=== PATIENT | female | born 1940 | race Caucasian/White ===

== ENCOUNTER 2025-02-19 04:51 | Observation (INO) | payer MEDICARE, SELFPAY ==
[2025-02-19] VITALS (10 sets, daily range): BP systolic 97–159; BP diastolic 58–76; PULSE 66–96; RESP 15–20; TEMP 36.2–38; O2SAT 88–97; BMI 26.0; BMI 24.3
--- NOTE | ~2025-02-19 | XR_ITS ---
CLINICAL HISTORY: AMS, fever 1 view chest x-ray Comparison: None provided Findings: Bilateral basilar predominant linear reticular opacities reflect chronic lung fibrotic changes. No consolidation or effusion. Heart is mildly enlarged. No acute fracture. IMPRESSION: No acute cardiopulmonary findings. This document has been electronically signed by: Cruz Magdaleno MD on 02/19/2025 06:17:43
--- NOTE | 2025-02-19 05:09 | ECG_ITS ---
Test Reason : AMS Blood Pressure : */* mmHG Vent. Rate : 69 BPM Atrial Rate : 69 BPM P-R Int : 160 ms QRS Dur : 132 ms QT Int : 462 ms P-R-T Axes : 40 59 24 degrees QTcB Int : 495 ms Normal sinus rhythm Possible Left atrial enlargement Right bundle branch block Abnormal ECG No previous ECGs available Referred By: Michela Sharif Electronically Signed By: AC BERGMAN MD
[2025-02-19 05:41] LABS: MANUAL DIFF FLAG NO
[2025-02-19 05:42] LABS: Hematocrit 41.7 % (37.0-47.0); Hemoglobin 13.7 g/dl (12.0-16.0); Imm Gran Abs Auto 0.05 X10*3/uL (0.00-0.03); Imm Gran Pct Auto 0.4 % (0.0-0.4); Lymphocytes Absolute Auto 0.6 X10*3/uL (1.2-4.9); Mean Corpuscular HGB Conc 32.9 g/dl (31.0-35.0); Mean Corpuscular Hemoglobin 27.5 pg (27.0-33.0); Mean Corpuscular Volume 83.7 fL (80.0-98.0); NRBC Abs Auto 0.000 X10*3/uL (0.0-0.012); NRBC Pct Auto 0.0 /100WBC (0.0-0.2); Platelet Count 178 X10*3/uL (160-400); Red Blood Count 4.98 X10*6/uL (4.20-5.50); White Blood Count 11.3 X10*3/uL (4.8-10.8)
[2025-02-19 05:47] LABS: INTERNATIONAL NORM RATIO 1.2 (0.9-1.1); Prothrombin Time 14.7 SEC (11.2-13.5)
[2025-02-19 06:04] LABS: Alanine Aminotransferase 14 U/L (0-31); Albumin Level 4.4 g/dL (3.5-5.0); Alkaline Phosphatase 116 U/L (39-117); Anion Gap 14 (12-20); Aspartate Amino Transferase 25 U/L (5-31); Blood Urea Nitrogen 16 mg/dL (9-16); Calcium 9.6 mg/dL (8.4-10.2); Carbon Dioxide 23 mmol/L (22-29); Chloride 105 mmol/L (96-108); Creatinine Clr Calc Pharmacy 35.1; Estimated Glomerular Filt Rate 53; Magnesium 2.1 mg/dL (1.6-2.6); Potassium 4.0 mmol/L (3.3-5.1); Sodium 138 mmol/L (135-145); Total Protein 7.3 g/dL (6.5-8.0)
[2025-02-19 06:07] LABS: Resp Syncy Virus RNA Qual PCR NEGATIVE (Negative); SARS COV2 PCR INHOUSE NEGATIVE (Negative)
[2025-02-19 06:12] LABS: Troponin-I High Sensitivity 11.5 ng/L (<3.5-17.0)
--- NOTE | 2025-02-19 06:14 | PC.NURSE ---
pt daughter called, will arrive as soon as possible, had a flat tire.
--- NOTE | 2025-02-19 06:15 | PC.NURSE ---
pt placed on 2L 02, sp02 92%, 89% on room air.
--- OUTSIDE RECORDS SUMMARY | 2025-02-19 06:32 | XMS_ITS | Patient Health Record ---
Author Organization [facility] Address [address] [place] [id number] Care Team Providers Care Gang Sawyer Name Role Phone NONE, NONE Primary Care Provider Epifanio Soto [phone] Reason For Referral No Information Plan Of Treatment No Information
--- NOTE | 2025-02-19 07:26 | ED_ITS ---
HPI - Altered Mental Status General Chief Complaint: Altered Mental Status Stated Complaint: STROKE ALERT. AMA Time Seen by Provider: 02/19/25 04:58 Source: patient, EMS, RN notes reviewed and old records reviewed Mode of arrival: EMS Limitations: altered mental status History of Present Illness ED Provider: Dr. Michela Sharif HPI narrative: 84-year-old female brought in by EMS from home for altered mental status (AMS). Daughter last spoke with patient at 1999 yesterday when patient said she was ?tired but fine.? Patient never got up to go to bed and remained in her chair overnight. Since ~1999 last night family notes headache, generalized weakness, and vision changes with progressive confusion; unable to stand yesterday. EMS blood glucose 146. Reported possible fever per family, but none documented or recalled by patient. Outside TNK window (last known well 1999 yesterday). History notable for recent hospitalization and rehab stay in October for back pain; details of hospitalization and rehab unclear. Lives at home; daughter is primary caregiver but does not reside with patient. Normally ambulatory and walks daily with daughter. Related Data Allergies Allergy/AdvReac Type Severity Reaction Status Date / Time citalopram (From Celexa) Allergy Unknown Unknown Verified 02/19/25 05:10 amoxicillin AdvReac Unknown Diarrhea Verified 02/19/25 05:14 Review of Systems 2 Review of Systems: as per HPI, full review of systems performed and negative but for the above mentioned pertinent positives and negatives. [facility] Social History Social History Smoked in Last 30 Days: No Advance Directives: No Advance Directives Information Provided: No Physical Exam ED Exam Exam: GENERAL: Chronically ill-appearing, conversant, appears globally weak. SKIN: Normal skin color for ethnicity, warm, dry, no rashes noted. HEENT: Normocephalic, atraumatic, no stridor, posterior oropharynx nonerythematous, EOMI. NECK: Soft, supple, full ROM, midline structures nontender, no step-offs, no deformities, no lymphadenopathy. CHEST: Heart regular rate and rhythm, no murmurs, symmetric chest rise and fall. PULMONARY: Clear to auscultation bilaterally, no labored breathing, no wheezes/rhales/ rhonchi. ABDOMINAL: Soft, nondistended, nontender, positive bowel sounds in all quadrants. : Deferred. MUSCULOSKELETAL: Normal tone, full range of motion, no deformities, no peripheral edema. NEURO: Alert and oriented to person, CN II through XII intact, no focal neurologic deficits. PSYCHIATRIC: Flat affect, fluid speech, appropriate demeanor. Vital Signs: Vital Signs - 24 hr 02/19/25 05:07 02/19/25 06:11 02/19/25 06:37 Temperature 100.4 F 98.3 F 99.6 F Pulse Rate 73 76 Respiratory Rate 18 16 Blood Pressure 117/65 121/65 Pulse Oximetry 92 94 Oxygen Delivery Method Room Air Nasal Cannula Oxygen Flow Rate 3 BMI result Body Mass Index 26.0 Medical Decision Making Medical Decision Making MDM Narrative: 84-year-old female with acute AMS, headache, weakness since last night (outside TNK window). Differential diagnosis includes anemia, electrolyte abnormality, infection, rhabdomyolysis/myositis, neurologic disorders such as Guillain-P[place] or myasthenia gravis, CVA, medication side effects, deconditioning, dehydration, among many others. A broad-based workup was initiated based on the patient's history and physical examination. They were watched closely on nitrocellulose operator with vital signs that were monitored during the duration of their stay. There are no signs of focal neurological deficit or weakness on exam. Problem #1: Altered Mental Status Without Focal Neurologic Symptoms Assessment: Acute confusion with headache, weakness, and visual complaints since ~16 hours ago. Out of window for thrombolytics. Exam shows equal leg weakness and normal language therapist; oriented to person, month, year, place. Plan: * Clinical picture favors metabolic process. No indication for emergent neuroimaging at this time. Patient has no focal neurologic deficits and is mentating appropriately, though appears globally weak. * Comprehensive AMS laboratory panel per ED protocol (CBC, CMP, UA, TSH, troponin, EKG review, toxicology as indicated). * Continue cardiac monitoring; note RBBB (baseline unknown). * Maintain normoglycemia; repeat POC glucose if indicated. * Monitor vitals and neurological status in ED; re-evaluate after imaging and labs return. * Update daughter with results and discuss next steps. Problem #2: Generalized Weakness Assessment: Progressive weakness over one week, acutely worse since last night; unable to stand yesterday. Etiology under investigation (neurologic vs infectious vs metabolic). Plan: * Included in AMS workup above. * Physical therapy consult if admission and once medically stable. * Continue fall precautions. Will reassess pending imaging and laboratory data and determine need for admission versus discharge when workup complete. 7:32 AM 02/19/2025 (Dr. Michela Sharif, Terrance.Jocelyn.) workup shows evidence of influenza. She also has a slightly elevated white blood cell count which could mean a bacterial infectious process on top of the influenza. Awaiting urinalysis though I feel she is at the point where she can be admitted. Covered with a dose of Rocephin. Given a L of IV fluid and a dose of Tamiflu. She remains hemodynamically stable though globally weak. Admitted in guarded condition. Differential Diagnosis Differential Diagnoses: The differential diagnosis associated with the presentation includes (as above) Admission/Observation Consideration of admission/observation: Escalation of care including admission/observation considered Consult Healthcare Provider Management of the patient was discussed with: Hospitalist Lab Data MDM Lab Attestation statement: I reviewed the patient's lab results. 02/19/25 05:24 02/19/25 05:24 Labs: Lab Results 02/19/25 02/19/25 Range/Units 05:24 05:25 WBC 11.3 H (4.8-10.8) X10*3/uL RBC 4.98 (4.20-5.50) X10*6/uL Hgb 13.7 (12.0-16.0) g/dl Hct 41.7 (37.0-47.0) % MCV 83.7 (80.0-98.0) fL MCH 27.5 (27.0-33.0) pg MCHC 32.9 (31.0-35.0) g/dl RDW 16.0 (11.0-16.0) % Plt Count 178 (160-400) X10*3/uL MPV 9.8 (9.4-12.3) fL Immature Gran % (Auto) 0.4 (0.0-0.4) % Neut % (Auto) 89.2 H (45-73) % Lymph % (Auto) 5.0 L (20-40) % Sterling % (Auto) 4.6 (2-11) % Eos % (Auto) 0.4 (0-4) % Baso % (Auto) 0.4 (0-2) % Lymph # (Auto) 0.6 L (1.2-4.9) X10*3/uL Sterling # (Auto) 0.5 (0.1-1.2) X10*3/uL Eos # (Auto) 0.0 (0.0-0.4) X10*3/uL Baso # (Auto) 0.0 (0.0-0.2) X10*3/uL Abs Immat Gran (auto) 0.05 H (0.00-0.03) X10*3/uL Absolute Neuts (auto) 10.1 H (2.0-8.3) x10*3/uL Absolute Nucleated RBC 0.000 (0.0-0.012) X10*3/uL Nucleated RBC % (auto) 0.0 (0.0-0.2) /100WBC PT 14.7 H (11.2-13.5) SEC INR 1.2 H (0.9-1.1) Sodium 138 (135-145) mmol/L Potassium 4.0 (3.3-5.1) mmol/L Chloride 105 (96-108) mmol/L Carbon Dioxide 23 (22-29) mmol/L Anion Gap 14 (12-20) BUN 16 (9-16) mg/dL Creatinine 0.99 (0.5-1.4) mg/dL Estim Creat Clear Calc 35.1 Estimated GFR 53 Random Glucose 99 (60-115) mg/dL Lactic Acid 0.8 (0.5-2.0) mmol/L Calcium 9.6 (8.4-10.2) mg/dL Magnesium 2.1 (1.6-2.6) mg/dL Total Bilirubin 1.0 (0.0-1.0) mg/dL AST 25 (5-31) U/L ALT 14 (0-31) U/L Alkaline Phosphatase 116 (39-117) U/L Troponin I High Sens 11.5 (<3.5-17.0) ng/L Total Protein 7.3 (6.5-8.0) g/dL Albumin 4.4 (3.5-5.0) g/dL Influenza Type A (PCR) POSITIVE A (Negative) Influenza Type B (PCR) NEGATIVE (Negative) RSV RNA Qual (PCR) NEGATIVE (Negative) SARS-CoV-2 RNA (RT-PCR) NEGATIVE (Negative) Independent Interpretation I performed an independent interpretation of an: EKG Interpretation: My independent interpretation of the ECG reveals normal sinus rhythm with rate of 69, normal axis, right bundle branch block, no ST elevations or depressions to suggest ischemic changes, no previous for comparison My independent interpretation of the chest x-ray reveals no consolidations, pulmonary edema, pleural effusion, pneumothorax, obvious bony abnormalities. Radiology Impression Discussion of test interpretation with radiology: I have reviewed the radiologist's reading. Independent Historian Clinical information obtained from an independent historian. History obtained from or confirmed by: EMS External Record Review External record reviewed: Inpatient record Prescription Management I considered prescription management with: Antiviral Chronic Conditions Patient?s care impacted by: Hypertension Social Determinants Patient?s care significantly limited by Social Determinants of Health including: Other Social Determinant of Health Discharge Plan Discharge Clinical Impression: Influenza A, Acute encephalopathy, Generalized muscle weakness Patient Disposition: Admitted As Inpatient Print Language: Tamazight
--- NOTE | 2025-02-19 08:19 | P.HPHOSP_ITS ---
History of Present Illness Date of Service: 02/19/25 Attending physician on admission: Asa Nichole Chief Complaint: weakness This is an 84 year old female who presents to the ED due to altered mental status. The patient last spoke to her daughter yesterday evening and reported that she was feeling tired. Then patient never got into her bed and remained in the chair overnight. She has had generalized weakness and confusion and inability to ambulate. In the emergency department lab work was relatively unremarkable. She was noted to be hypoxic with o2 saturation dropping to 89% on room air. She tested positive for influenza A. Chest x-ray was unremarkable. patient was treated with IVF and tamiflu and empiric antibiotics. The patient is currently awake and alert. She denies any shortness of breath at this time, she does endorse a dry cough. She denies any fever, chills. She does report feeling very weak. She had decreased appetite yesterday and did not eat anything. Review of Systems 2 Review of Systems: Yes all other systems are reviewed and are negative Constitutional: Constitutional: Denies chills and Denies fever(s) Cardiovascular: Cardiovascular: Denies chest pain, Denies palpitations and Denies dyspnea Respiratory: Respiratory: Reports cough and Denies dyspnea Gastrointestinal: Gastrointestinal: Denies abdominal pain, Denies diarrhea, Denies nausea and Denies vomiting Endocrine: Endocrine: Denies palpitations [facility] Social History Household Members: Family Housing: House Do you presently have visiting nurse or other home services: Yes Patient Tobacco Use Status: Never used Tobacco Smoked in Last 30 Days: No Currently Displaying Signs/Symptoms of Drug Intoxication Withdrawal: No Do you feel safe in your current relationship?: No Current Relationship Advance Directives: No Advance Directives Information Provided: No Recently lost weight without trying: Yes How much weight loss: 2-13 pounds Nutrition Risks: No Nutritional Risk Patient : No : No Poor oral hygiene: No Meds Allergies Allergy/AdvReac Type Severity Reaction Status Date / Time citalopram (From Celexa) Allergy Unknown Unknown Verified 02/19/25 05:10 amoxicillin AdvReac Unknown Diarrhea Verified 02/19/25 05:14 Active Medications: Current Medications Lactated Ringer's (Lr) 1,000 mls @ 999 mls/hr IV .Q1H1M ONE Stop: 12/14/25 08:23 Home Medications ?Medication ?Instructions ?Recorded ?Confirmed ?Last Taken ?Type atorvastatin 20 mg tablet 20 mg PO BEDTIME 02/19/25 Unknown History sertraline 100 mg tablet 200 mg PO BEDTIME 02/19/25 1 04/22/24 Unknown History Physical Exam 2 Vital Signs and Narrative: Vital Signs: Last Vital Signs Temp 99.6 F 02/19/25 06:37 Pulse 76 02/19/25 06:11 Resp 16 02/19/25 06:11 BP 121/65 02/19/25 06:11 Pulse Ox 94 02/19/25 06:11 O2 Del Method Nasal Cannula 02/19/25 06:11 O2 Flow Rate 3 02/19/25 06:11 BMI result Body Mass Index 26.0 Const: General: cooperative, comfortable, alert and awake Nutritional Appearance: average body habitus Orientation/consciousness: patient oriented x3 Resp: Effort & Inspection: normal respiratory effort, able to speak in complete sentences, no respiratory distress and no use of accessory muscles A uscultation: no wheezes Cardio: Rate: regular rate GI: Inspection: No distended Palpation (GI): Soft to palpation and nontender Neuro: Other: grossly nonfocal; able to move all 4 extremities spontaneously; speech clear, face symmetrical General: patient oriented x3 Extrem: General: No pedal edema Results Labs 02/19/25 05:24 02/19/25 05:24 Labs: Laboratory Results - last 24 hr 02/19/25 02/19/25 05:24 05:25 MCV 83.7 MCH 27.5 MCHC 32.9 RDW 16.0 Plt Count 178 MPV 9.8 Immature Gran % (Auto) 0.4 Neut % (Auto) 89.2 H Lymph % (Auto) 5.0 L Hinds % (Auto) 4.6 Eos % (Auto) 0.4 Baso % (Auto) 0.4 Lymph # (Auto) 0.6 L Hinds # (Auto) 0.5 Eos # (Auto) 0.0 Baso # (Auto) 0.0 Abs Immat Gran (auto) 0.05 H Absolute Neuts (auto) 10.1 H Absolute Nucleated RBC 0.000 Nucleated RBC % (auto) 0.0 PT 14.7 H INR 1.2 H Anion Gap 14 Estim Creat Clear Calc 35.1 Estimated GFR 53 Random Glucose 99 Lactic Acid 0.8 Calcium 9.6 Magnesium 2.1 Total Bilirubin 1.0 AST 25 ALT 14 Alkaline Phosphatase 116 Troponin I High Sens 11.5 Total Protein 7.3 Albumin 4.4 Influenza Type A (PCR) POSITIVE A Influenza Type B (PCR) NEGATIVE RSV RNA Qual (PCR) NEGATIVE SARS-CoV-2 RNA (RT-PCR) NEGATIVE Assessment and Plan (1) Influenza A: Status: Acute Plan This is an 84-year-old female who presents to the emergency department with confusion found to have influenza a Toxic metabolic encephalopathy due to influenza a Confusion improving No hypoxia Tamiflu Symptomatic support med rec pending at the time of admission dvt ppx - lovenox Quality Stroke Does the patient have a stroke diagnosis?: No VTE Prior VTE?: No VTE Risk Level:: Medical - moderate - high VTE Device Contraindication: N/A - Device Ordered VTE Drug Contraindication: N/A - Med Ordered
[2025-02-19] MEDS: Lactated Ringers 1,000 ML 999 ML IV (08:27)
[2025-02-19 10:23] LABS: Appearance Urine Clear; Glucose Urine UA Negative (Negative); PH 8.0 (5.0-9.0); Specific Gravity - Urine 1.010 (1.005-1.025); UMIC TRIGGER UACC YES
--- NOTE | 2025-02-19 12:08 | PHA.MEDREC ---
Addendum entered by Alvaro Srinivasan, PharmD 02/19/25 12:20: Spoke with patients daughter Ruba. She brought in patients medication bottles. She confirmed patient takes both medication at bedtime. Daughter reports patient did not take her medications last night. Original Note: Pharmacy Consult ? Medication Reconciliation Pharmacy has completed the medication reconciliation. Used claims to complete med rec. Family phone number not in service. Patient is AMS.
[2025-02-19] MEDS: 0.9 % Sodium Chloride Flush 3 ML SYRINGE IVFLUSH ×2 (17:22→19:26)
[2025-02-20 04:00] VITALS: BP 130/71; PULSE 81; RESP 18; TEMP 36.6; O2SAT 96
[2025-02-20] MEDS: 0.9 % Sodium Chloride Flush 3 ML SYRINGE IVFLUSH ×3 (07:02→20:16)
[2025-02-20 07:50] VITALS: BP 132/69; PULSE 80; RESP 18; TEMP 36.4; O2SAT 91
--- NOTE | 2025-02-20 12:05 | MHC.CM.PN ---
MET WITH [facility] PT LIVES ALONE HAS MOW AND WILL LIKELY NEED STR REFERRALS MADE WILL NEED PT EVAL
[2025-02-20 12:12] LABS: Glucose, Whole Blood 106 mg/dL (60-115)
--- NOTE | 2025-02-20 15:25 | P.PNIM_ITS ---
Subjective Subjective Date of Service: 02/20/25 Interval History: Markedly short of breath with minimal movement. Extremely weak overnight Review of Systems Denies chest pain Admits to shortness of breath with minimal movement Denies Physical Exam 2 Vital Signs: Vital Signs: Last Vital Signs Temp 97.5 F 02/20/25 07:50 Pulse 80 02/20/25 07:50 Resp 18 02/20/25 07:50 BP 132/69 02/20/25 07:50 Pulse Ox 91 L 02/20/25 07:50 O2 Del Method Room Air 02/20/25 07:50 O2 Flow Rate 3 02/19/25 06:11 BMI result Body Mass Index 24.3 Const: Other: Awake ill-appearing Resp: Other: Scattered expiratory wheezes with crackles left base Cardio: Other: No S4; positive S1-S2; no S3 murmurs rubs or gallops GI: Other: Soft nontender nondistended normoactive bowel sounds Extrem: Other: No edema bilaterally Objective Data Active Medications Acetaminophen (Acetaminophen 325 Mg Tablet) 650 mg PO Q6H PRN PRN Reason: Pain, Mild 1-3,fever,headache Last Admin: 02/19/25 10:11 Dose: 650 mg Documented By: TYRA Albuterol/Ipratropium (Albuterol/Iprat 2.5/0.5mg 3 Ml Ampul.Neb) 3 ml INHALE RQ6H WHILE AWAKE PRN PRN Reason: shortness of breath/wheezing Atorvastatin Calcium (Atorvastatin Calcium 20 Mg Tablet) 20 mg PO BEDTIME [facility] Last Admin: 02/19/25 19:26 Dose: 20 mg Documented By: LEFEBVA Calcium Carbonate (Calcium Carbonate 750 Mg Tab.Chew) 750 mg PO Q4H PRN PRN Reason: Heartburn Enoxaparin Sodium (Enoxaparin Sodium 40 Mg/0.4 Ml Syringe) 40 mg SUBCUT Q24H [facility] Last Admin: 02/20/25 07:02 Dose: 40 mg Documented By: CLARITZA Guaifenesin/Dextromethorphan (Guaifenesin Dm 100/10/5 Ml 5 Ml Syrup) 5 ml PO Q6H PRN PRN Reason: Cough Ceftriaxone Sodium 1 gm/ (Sodium Chloride) 50 mls @ 100 mls/hr IV Q24H [facility] Last Infusion: 02/20/25 11:24 Dose: Infused Documented By: CLARITZA Doxycycline Hyclate 100 mg/ (Sodium Chloride) 250 mls @ 166.67 mls/hr IV Q12H [facility] Last Infusion: 02/20/25 13:55 Dose: Infused Documented By: CLARITZA Magnesium Hydroxide (Milk Of Magnesia 30 Ml Oral.Susp) 30 ml PO DAILY PRN PRN Reason: Constipation Melatonin (Melatonin 3 Mg Tablet) 6 mg PO BEDTIME PRN PRN Reason: Insomnia Last Admin: 02/19/25 19:26 Dose: 6 mg Documented By: JOHN Methylprednisolone Sodium Succinate (Methylprednisolone Sod Succ 40 Mg/Ml Vial) 40 mg IVPUSH Q12H [facility] Last Admin: 02/20/25 10:52 Dose: 40 mg Documented By: CLARITZA Oseltamivir Phosphate (Oseltamivir Phosphate 30 Mg Capsule) 30 mg PO Q12H [facility] Stop: 02/24/25 09:01 Last Admin: 02/20/25 07:02 Dose: 30 mg Documented By: CLARITZA Sertraline HCl (Sertraline Hcl 100 Mg Tablet) 200 mg PO BEDTIME [facility] Last Admin: 02/19/25 19:26 Dose: 200 mg Documented By: JOHN Sodium Chloride (0.9 % Sodium Chloride Flush 3 Ml Syringe) 3 ml IVFLUSH QSHIFT [facility] Last Admin: 02/20/25 07:02 Dose: 3 ml Documented By: CLARITZA Labs 02/19/25 05:24 02/19/25 05:24 Labs: Laboratory Results - last 24 hr 02/19/25 04:51 POC Glucose 106 Microbiology Microbiology Results: Microbiology 02/19/25 05:24 Blood Culture - Preliminary Blood - Venous No growth after 24 hours. 02/19/25 05:24 Blood Culture - Preliminary Blood - Venous No growth after 24 hours. Assessment and Plan (1) Acute encephalopathy: Status: Acute (2) Generalized muscle weakness: Status: Acute (3) Influenza A: Status: Acute Plan This is an 84-year-old female who presents to the emergency department with confusion found to have influenza a. Over the last 24 hours has deteriorated now with shortness of breath and wheezing 1.Toxic metabolic encephalopathy due to influenza a(now with relative hypoxemia) -empiric ceftriaxone/doxycycline (1) -IV Solu-Medrol 40 mg q.12 hours -titrate O2 to maintain sats greater than or equal to 92% Lovenox DNR DNI Patient requires at least 2 midnights going forward or more of inpatient stay given deterioration of condition and resuscitation of IV antibiotics and steroids. This can not be achieved a lesser acute setting Quality Stroke Does the patient have a stroke diagnosis?: No VTE Prior VTE?: No VTE Risk Level:: Medical - moderate - high VTE Device Contraindication: N/A - Device Ordered VTE Drug Contraindication: N/A - Med Ordered
[2025-02-20 16:00] VITALS: BP 94/55; PULSE 67; RESP 19; TEMP 36.5; O2SAT 93
[2025-02-20 20:00] VITALS: BP 112/56; PULSE 70; RESP 18; TEMP 36.3; O2SAT 95
[2025-02-20] MEDS: guaiFENesin DM 100/10/5 ML 5 ML SYRUP PO (20:16)
[2025-02-21 03:26] VITALS: BP 119/62; PULSE 53; RESP 16; TEMP 36.6; O2SAT 92
[2025-02-21 06:54] LABS: MANUAL DIFF FLAG NO
[2025-02-21 06:58] LABS: Hematocrit 39.9 % (37.0-47.0); Hemoglobin 12.8 g/dl (12.0-16.0); Imm Gran Abs Auto 0.03 X10*3/uL (0.00-0.03); Imm Gran Pct Auto 0.5 % (0.0-0.4); Lymphocytes Absolute Auto 0.7 X10*3/uL (1.2-4.9); Mean Corpuscular HGB Conc 32.1 g/dl (31.0-35.0); Mean Corpuscular Hemoglobin 27.2 pg (27.0-33.0); Mean Corpuscular Volume 84.9 fL (80.0-98.0); NRBC Abs Auto 0.000 X10*3/uL (0.0-0.012); NRBC Pct Auto 0.0 /100WBC (0.0-0.2); Platelet Count 163 X10*3/uL (160-400); Red Blood Count 4.70 X10*6/uL (4.20-5.50); White Blood Count 6.1 X10*3/uL (4.8-10.8)
[2025-02-21 07:28] LABS: Alanine Aminotransferase 27 U/L (0-31); Albumin Level 3.9 g/dL (3.5-5.0); Alkaline Phosphatase 97 U/L (39-117); Anion Gap 13 (12-20); Aspartate Amino Transferase 54 U/L (5-31); Blood Urea Nitrogen 29 mg/dL (9-16); Calcium 9.4 mg/dL (8.4-10.2); Carbon Dioxide 24 mmol/L (22-29); Chloride 108 mmol/L (96-108); Creatinine Clr Calc Pharmacy 29.8; Estimated Glomerular Filt Rate 46; Potassium 3.9 mmol/L (3.3-5.1); Sodium 141 mmol/L (135-145); Total Protein 6.7 g/dL (6.5-8.0)
--- NOTE | 2025-02-21 07:28 | HO.PM.IMPN ---
Subjective Subjective Date of Service: 02/21/25 Interval History: f/u on acute toxic metabolic encephalopathy d/t influenza not hypoxic, no other issues Physical Exam Vital Signs: Vital Signs: Last Vital Signs Temp 97.8 F 02/21/25 03:26 Pulse 53 02/21/25 03:26 Resp 16 02/21/25 03:26 BP 119/62 02/21/25 03:26 Pulse Ox 92 02/21/25 03:26 O2 Del Method Room Air 02/21/25 03:26 O2 Flow Rate 3 02/19/25 06:11 BMI result Body Mass Index 24.3 Const: Other: Awake ill-appearing Resp: Other: Scattered expiratory wheezes with crackles left base Cardio: Other: No S4; positive S1-S2; no S3 murmurs rubs or gallops GI: Other: Soft nontender nondistended normoactive bowel sounds Extrem: Other: No edema bilaterally Objective Data Active Medications Acetaminophen (Acetaminophen 325 Mg Tablet) 650 mg PO Q6H PRN PRN Reason: Pain, Mild 1-3,fever,headache Last Admin: 02/19/25 10:11 Dose: 650 mg Documented By: TYRA Albuterol/Ipratropium (Albuterol/Iprat 2.5/0.5mg 3 Ml Ampul.Neb) 3 ml INHALE RQ6H WHILE AWAKE PRN PRN Reason: shortness of breath/wheezing Atorvastatin Calcium (Atorvastatin Calcium 20 Mg Tablet) 20 mg PO BEDTIME [facility] Last Admin: 02/20/25 20:16 Dose: 20 mg Documented By: SHAJI Calcium Carbonate (Calcium Carbonate 750 Mg Tab.Chew) 750 mg PO Q4H PRN PRN Reason: Heartburn Enoxaparin Sodium (Enoxaparin Sodium 40 Mg/0.4 Ml Syringe) 40 mg SUBCUT Q24H [facility] Last Admin: 02/20/25 07:02 Dose: 40 mg Documented By: CLARITZA Guaifenesin/Dextromethorphan (Guaifenesin Dm 100/10/5 Ml 5 Ml Syrup) 5 ml PO Q6H PRN PRN Reason: Cough Last Admin: 02/20/25 20:16 Dose: 5 ml Documented By: SHAJI Ceftriaxone Sodium 1 gm/ (Sodium Chloride) 50 mls @ 100 mls/hr IV Q24H [facility] Last Infusion: 02/20/25 11:24 Dose: Infused Documented By: CLARITZA Doxycycline Hyclate 100 mg/ (Sodium Chloride) 250 mls @ 166.67 mls/hr IV Q12H [facility] Last Infusion: 02/21/25 01:45 Dose: Infused Documented By: SHAJI Magnesium Hydroxide (Milk Of Magnesia 30 Ml Oral.Susp) 30 ml PO DAILY PRN PRN Reason: Constipation Melatonin (Melatonin 3 Mg Tablet) 6 mg PO BEDTIME PRN PRN Reason: Insomnia Last Admin: 02/19/25 19:26 Dose: 6 mg Documented By: JOHN Methylprednisolone Sodium Succinate (Methylprednisolone Sod Succ 40 Mg/Ml Vial) 40 mg IVPUSH Q12H [facility] Last Admin: 02/20/25 22:29 Dose: 40 mg Documented By: SHAJI Oseltamivir Phosphate (Oseltamivir Phosphate 30 Mg Capsule) 30 mg PO Q12H [facility] Stop: 02/24/25 09:01 Last Admin: 02/20/25 20:16 Dose: 30 mg Documented By: SHAJI Sertraline HCl (Sertraline Hcl 100 Mg Tablet) 200 mg PO BEDTIME [facility] Last Admin: 02/20/25 20:16 Dose: 200 mg Documented By: SHAJI Sodium Chloride (0.9 % Sodium Chloride Flush 3 Ml Syringe) 3 ml IVFLUSH QSHIFT [facility] Last Admin: 02/20/25 20:16 Dose: 3 ml Documented By: SHAJI Labs 02/21/25 06:43 02/21/25 06:43 Labs: Laboratory Results - last 24 hr 02/19/25 02/21/25 04:51 06:43 MCV 84.9 MCH 27.2 MCHC 32.1 RDW 16.6 H Plt Count 163 MPV 10.1 Immature Gran % (Auto) 0.5 H Neut % (Auto) 80.7 H Lymph % (Auto) 12.1 L [place] % (Auto) 6.7 Eos % (Auto) 0.0 Baso % (Auto) 0.0 Lymph # (Auto) 0.7 L [place] # (Auto) 0.4 Eos # (Auto) 0.0 Baso # (Auto) 0.0 Abs Immat Gran (auto) 0.03 Absolute Neuts (auto) 5.0 Absolute Nucleated RBC 0.000 Nucleated RBC % (auto) 0.0 POC Glucose 106 Microbiology Microbiology Results: Microbiology 02/19/25 05:24 Blood Culture - Preliminary Blood - Venous No growth after 24 hours. 02/19/25 05:24 Blood Culture - Preliminary Blood - Venous No growth after 24 hours. Assessment and Plan (1) Acute encephalopathy: Status: Acute (2) Generalized muscle weakness: Status: Acute (3) Influenza A: Status: Acute Plan This is an 84-year-old female who presents to the emergency department with confusion found to have influenza a. Over the last 24 hours has deteriorated now with shortness of breath and wheezing Toxic metabolic encephalopathy due to influenza a(now with relative hypoxemia) empiric ceftriaxone/doxycycline (1) Tamiflu IV Solu-Medrol 40 mg q.12 hours Off O2 HLD Lipitor Mood disorder Zoloft PT eval Lovenox DNR DNI Patient requires at least 2 midnights going forward or more of inpatient stay given deterioration of condition and resuscitation of IV antibiotics and steroids. This can not be achieved a lesser acute setting [place] home Quality Stroke Does the patient have a stroke diagnosis?: No VTE Prior VTE?: No VTE Risk Level:: Medical - moderate - high VTE Device Contraindication: N/A - Device Ordered VTE Drug Contraindication: N/A - Med Ordered
[2025-02-21 07:45] VITALS: BP 114/56; PULSE 52; RESP 16; TEMP 36; O2SAT 94
[2025-02-21] MEDS: 0.9 % Sodium Chloride Flush 3 ML SYRINGE IVFLUSH (10:27)
--- NOTE | 2025-02-21 12:50 | MHC.CM.PN ---
pt is not obs pt will be dcd home today at 3 by ambpt does not want rehab keyona lewis
[2025-02-21 14:28] VITALS: BP 103/59; PULSE 67; RESP 16; TEMP 36.6; O2SAT 92
[2025-02-21 15:43] VITALS: BP 96/52; PULSE 61; RESP 19; TEMP 37; O2SAT 96
[2025-02-21 16:22] VITALS: BP 112/71
[2025-02-21 20:00] VITALS: BP 131/60; PULSE 59; RESP 19; TEMP 36.1; O2SAT 95
[2025-02-22 03:18] VITALS: BP 140/68; PULSE 54; RESP 16; TEMP 36.6; O2SAT 95
[2025-02-22 07:13] VITALS: BP 159/72; PULSE 54; RESP 16; TEMP 36; O2SAT 96
--- NOTE | 2025-02-22 11:13 | HO.PM.IMPN ---
Subjective Subjective Date of Service: 02/22/25 Interval History: has diarrhea, no resp distress Physical Exam Vital Signs: Vital Signs: Last Vital Signs Temp 96.8 F 02/22/25 07:13 Pulse 54 02/22/25 07:13 Resp 16 02/22/25 07:13 BP 159/72 H 02/22/25 07:13 Pulse Ox 96 02/22/25 07:13 O2 Del Method Room Air 02/22/25 07:13 O2 Flow Rate 3 02/19/25 06:11 BMI result Body Mass Index 24.3 Const: Other: Awake ill-appearing Resp: Other: Scattered expiratory wheezes with crackles left base Cardio: Other: No S4; positive S1-S2; no S3 murmurs rubs or gallops GI: Other: Soft nontender nondistended normoactive bowel sounds Extrem: Other: No edema bilaterally Objective Data Active Medications Acetaminophen (Acetaminophen 325 Mg Tablet) 650 mg PO Q6H PRN PRN Reason: Pain, Mild 1-3,fever,headache Last Admin: 02/19/25 10:11 Dose: 650 mg Documented By: TYRA Albuterol/Ipratropium (Albuterol/Iprat 2.5/0.5mg 3 Ml Ampul.Neb) 3 ml INHALE RQ6H WHILE AWAKE PRN PRN Reason: shortness of breath/wheezing Atorvastatin Calcium (Atorvastatin Calcium 20 Mg Tablet) 20 mg PO BEDTIME [facility] Last Admin: 02/21/25 21:58 Dose: 20 mg Documented By: CAMMIE Calcium Carbonate (Calcium Carbonate 750 Mg Tab.Chew) 750 mg PO Q4H PRN PRN Reason: Heartburn Enoxaparin Sodium (Enoxaparin Sodium 30 Mg/0.3 Ml Syringe) 30 mg SUBCUT Q24H [facility] Last Admin: 02/22/25 08:31 Dose: 30 mg Documented By: CONNOR Guaifenesin/Dextromethorphan (Guaifenesin Dm 100/10/5 Ml 5 Ml Syrup) 5 ml PO Q6H PRN PRN Reason: Cough Last Admin: 02/20/25 20:16 Dose: 5 ml Documented By: SHAJI Ceftriaxone Sodium 1 gm/ (Sodium Chloride) 50 mls @ 100 mls/hr IV Q24H [facility] Last Infusion: 02/22/25 11:12 Dose: Infused Documented By: CONNOR Doxycycline Hyclate 100 mg/ (Sodium Chloride) 250 mls @ 166.67 mls/hr IV Q12H [facility] Last Admin: 02/22/25 11:08 Dose: 166.67 mls/hr Documented By: CONNOR Magnesium Hydroxide (Milk Of Magnesia 30 Ml Oral.Susp) 30 ml PO DAILY PRN PRN Reason: Constipation Melatonin (Melatonin 3 Mg Tablet) 6 mg PO BEDTIME PRN PRN Reason: Insomnia Last Admin: 02/19/25 19:26 Dose: 6 mg Documented By: JOHN Methylprednisolone Sodium Succinate (Methylprednisolone Sod Succ 40 Mg/Ml Vial) 40 mg IVPUSH Q12H [facility] Last Admin: 02/22/25 10:28 Dose: 40 mg Documented By: CONNOR Oseltamivir Phosphate (Oseltamivir Phosphate 30 Mg Capsule) 30 mg PO DAILY [facility] Stop: 02/24/25 09:01 Last Admin: 02/22/25 09:12 Dose: 30 mg Documented By: CONNOR Sertraline HCl (Sertraline Hcl 100 Mg Tablet) 200 mg PO BEDTIME [facility] Last Admin: 02/21/25 21:58 Dose: 200 mg Documented By: CAMMIE Sodium Chloride (0.9 % Sodium Chloride Flush 3 Ml Syringe) 3 ml IVFLUSH QSHIFT [facility] Last Admin: 02/22/25 10:33 Dose: Not Given Documented By: CONNOR Non-Admin Reason: Previously Administered Labs 02/21/25 06:43 02/21/25 06:43 Labs: Laboratory Results - last 24 hr 02/19/25 02/21/25 04:51 06:43 MCV 84.9 MCH 27.2 MCHC 32.1 RDW 16.6 H Plt Count 163 MPV 10.1 Immature Gran % (Auto) 0.5 H Neut % (Auto) 80.7 H Lymph % (Auto) 12.1 L [place] % (Auto) 6.7 Eos % (Auto) 0.0 Baso % (Auto) 0.0 Lymph # (Auto) 0.7 L [place] # (Auto) 0.4 Eos # (Auto) 0.0 Baso # (Auto) 0.0 Abs Immat Gran (auto) 0.03 Absolute Neuts (auto) 5.0 Absolute Nucleated RBC 0.000 Nucleated RBC % (auto) 0.0 POC Glucose 106 Microbiology Microbiology Results: Microbiology 02/19/25 05:24 Blood Culture - Preliminary Blood - Venous No growth after 48 hours. 02/19/25 05:24 Blood Culture - Preliminary Blood - Venous No growth after 48 hours. Assessment and Plan (1) Acute encephalopathy: Status: Acute (2) Generalized muscle weakness: Status: Acute (3) Influenza A: Status: Acute Plan This is an 84-year-old female who presents to the emergency department with confusion found to have influenza a. Over the last 24 hours has deteriorated now with shortness of breath and wheezing Toxic metabolic encephalopathy due to influenza a(now with relative hypoxemia) empiric ceftriaxone/doxycycline 3, dc ceftriaxone, doxy x 5 days Tamiflun x 5 days IV Solu-Medrol 40 mg q.12 hours---no indication, stop Off O2 Diarrhea check cdif, gip HLD Lipitor Mood disorder Zoloft PT eval Lovenox DNR DNI Patient requires at least 2 midnights going forward or more of inpatient stay given deterioration of condition and resuscitation of IV antibiotics and steroids. This can not be achieved a lesser acute setting DC to rehab when bed available. Quality Stroke Does the patient have a stroke diagnosis?: No VTE Prior VTE?: No VTE Risk Level:: Medical - moderate - high VTE Device Contraindication: N/A - Device Ordered VTE Drug Contraindication: N/A - Med Ordered
[2025-02-22 12:12] LABS: CDiff Gene PCR NEGATIVE (Negative)
[2025-02-22 12:50] LABS: E. coli EAEC Not Detected (Not Detect.); E. coli EPEC Not Detected (Not Detect.); E. coli ETEC Not Detected (Not Detect.); E. coli STEC Not Detected (Not Detect.); Shigella sp./EIEC Not Detected (Not Detect.)
[2025-02-22 16:00] VITALS: BP 133/60; PULSE 55; RESP 18; TEMP 36.2; O2SAT 92
[2025-02-22 20:00] VITALS: BP 140/63; PULSE 59; RESP 19; TEMP 36; O2SAT 94
[2025-02-23 03:22] VITALS: BP 157/70; PULSE 50; RESP 18; TEMP 36.1; O2SAT 92
[2025-02-23 07:30] VITALS: BP 110/57; PULSE 50; RESP 18; TEMP 36.1; O2SAT 94
[2025-02-23] MEDS: 0.9 % Sodium Chloride Flush 3 ML SYRINGE IVFLUSH (08:51)
--- NOTE | 2025-02-23 08:51 | MHC.CM.PN ---
Addendum entered by Shahida Samayoa 02/23/25 12:23: CM MET WITH PTS DAUGHTER TO OBTAIN PCP INFORMATION PT IS ACTIVE WITH [facility] ALSO REPORTS THE ADDRESS ON FILE IS INCORRECT PT NOW LIVES AT [address] [place] SHE IS ALSO CONCERNED THEY DO NOT HAVE THE ACCURATE INSURANCE INFORMATION, COPIES OF CARDS TAKEN PER DISCUSSION, PT WILL DC AT 1330 VIA [facility] UPDATED VIA [facility] Addendum entered by Shahida Samayoa 02/23/25 11:19: PT WILL DC HOME TODAY WITH [facility] VM MESSAGE LEFT FOR DAUGHTER REQUESTING A RETURN CALL TO ARRANGE TRANSPORT TIME Original Note: CM RECEIVED A CALL FROM PTS DAUGHTER, HIMANSHU, SHE REPORTS SHE SPOKE TO HER BROTHERS AND THEY ARE NOT AGREEABLE TO PT GOING TO STR PRIVATE PAY SHE SAYS SHE WILL NEED AN AMBULANCE TO BRING PT HOME AND HOPES IT IS COVERED, SAUL EXPLAINED WE COULD NOT GUARANTEE SHE IS ALSO AGREEABLE TO [facility] FOR PT AND NURSING BUT DECLINES ACP HER BROTHER DOES NOT LIKE PEOPLE IN THE HOME SHE SAYS HER BROTHER DOES LIVE WITH THE PT BUT IS AN SALES TRAINEE SO RARELY HOME SHE WILL BE STAYING WITH THE PT OVERNIGHT AND MUCH POSSIBLE AND WILL GET A COMMODE TODAY
--- NOTE | 2025-02-23 09:16 | PM.DS ---
DS: Providers Provider Date of admission: 02/19/25 08:15 Date of discharge: 02/23/25 Primary care physician: Unknown Physician DS: Diagnosis Discharge Diagnosis (1) Acute encephalopathy: Status: Acute (2) Generalized muscle weakness: Status: Acute (3) Influenza A: Status: Acute DS: Summary Hospital Course Hospital Course: admitting H and P Chief Complaint: weakness This is an 84 year old female who presents to the ED due to altered mental status. The patient last spoke to her daughter yesterday evening and reported that she was feeling tired. Then patient never got into her bed and remained in the chair overnight. She has had generalized weakness and confusion and inability to ambulate. In the emergency department lab work was relatively unremarkable. She was noted to be hypoxic with o2 saturation dropping to 89% on room air. She tested positive for influenza A. Chest x-ray was unremarkable. patient was treated with IVF and tamiflu and empiric antibiotics. The patient is currently awake and alert. She denies any shortness of breath at this time, she does endorse a dry cough. She denies any fever, chills. She does report feeling very weak. She had decreased appetite yesterday and did not eat anything. Hospital course: Patient presente with weakness and found to have Influeza and started on Tamiflu, later developped decrease in oxygen saturation and was given steroid, ceftriaxone and zithormax, however xray showed no acute pulmonary finding. Her lungs are clear and no respiratory distress. To complete 5 days of Tamiflu, doxy Time Attestation Discharge Coordination Time (in mins): 45 Quality: Safe Use of Opioids Does Pt have an Active Cancer Diagnosis on the Problem List?: No Quality: Stroke Does the patient have a stroke diagnosis?: No Physical Exam Vital Signs: Vital Signs: Selected Entries 02/23/25 07:30 Temperature 97.0 F Pulse Rate 50 Respiratory Rate 18 Blood Pressure 110/57 L Pulse Oximetry 94 Oxygen Delivery Me thod Room Air DS: Data Data Completed and Pending Labs on day of discharge: Laboratory Results - last 24 hr 02/19/25 02/21/25 04:51 06:43 WBC 6.1 RBC 4.70 Hgb 12.8 Hct 39.9 MCV 84.9 MCH 27.2 MCHC 32.1 RDW 16.6 H Plt Count 163 MPV 10.1 Immature Gran % (Auto) 0.5 H Neut % (Auto) 80.7 H Lymph % (Auto) 12.1 L [place] % (Auto) 6.7 Eos % (Auto) 0.0 Baso % (Auto) 0.0 Lymph # (Auto) 0.7 L [place] # (Auto) 0.4 Eos # (Auto) 0.0 Baso # (Auto) 0.0 Abs Immat Gran (auto) 0.03 Absolute Neuts (auto) 5.0 Absolute Nucleated RBC 0.000 Nucleated RBC % (auto) 0.0 Sodium 141 Potassium 3.9 Chloride 108 Carbon Dioxide 24 Anion Gap 13 BUN 29 H Creatinine 1.13 Estim Creat Clear Calc 29.8 Estimated GFR 46 POC Glucose 106 Fasting Glucose 144 H Calcium 9.4 Total Bilirubin 0.4 AST 54 H ALT 27 Alkaline Phosphatase 97 Total Protein 6.7 Albumin 3.9 Preliminary micro results at discharge 02/19/25 05:24 Blood Culture - Preliminary Blood - Venous No growth after 48 hours. 02/19/25 05:24 Blood Culture - Preliminary Blood - Venous No growth after 48 hours. Discharge Plan Discharge Anticipated Discharge Date/Time: 02/23/25 09:17 Patient Disposition: Home Health Service Discharge Diagnosis: Influenza Referrals: Wilfredo Colvin [Outside] - 1 Week Physician,Blanca J [Primary Care Provider, Medical] - 1 Week Discharge Medications: New oseltamivir 30 mg Capsule 30 mg PO DAILY Qty: 2 0RF doxycycline monohydrate 100 mg capsule 100 mg PO BID Qty: 4 0RF Continued atorvastatin 20 mg tablet 20 mg PO BEDTIME sertraline 100 mg tablet 200 mg PO BEDTIME Discharge Orders: Discharge Order (Routine); Ordered 02/23/25 Ordered By: Chris Ventura Diet: Advance to usual diet Activity on Discharge: As tolerated Stand Alone Forms: Patient Portal Discharge page Print Language: Amharic Care Plan Goals: recovery from influenza and weakness Health Concerns: influenza Plan of Treatment: take tamiflu as directed 2 more dose starting tomorrow take doxyccyline for possible bronchitis 4 more doses You will have Visiting nurses and home therapy at home Follow up with your doctor in a week Assessment: see above
--- NOTE | 2025-02-23 09:18 | HO.PM.IMPN ---
Subjective Subjective Date of Service: 02/23/25 Interval History: diarrhea yesterday resolved, negative cdif and gi panel Physical Exam Vital Signs: Vital Signs: Last Vital Signs Temp 97.0 F 02/23/25 07:30 Pulse 50 02/23/25 07:30 Resp 18 02/23/25 07:30 BP 110/57 L 02/23/25 07:30 Pulse Ox 94 02/23/25 07:30 O2 Del Method Room Air 02/23/25 07:30 O2 Flow Rate 3 02/19/25 06:11 BMI result Body Mass Index 24.3 Const: Other: General: AO X 3, no acute distress Resp: CTA bilateral CVS: S1,S2,RRR GI: +BS, NT, no distention Skin: No rash Neuro: motor grossly intact Psych: appropriate affect Objective Data Active Medications Acetaminophen (Acetaminophen 325 Mg Tablet) 650 mg PO Q6H PRN PRN Reason: Pain, Mild 1-3,fever,headache Last Admin: 02/19/25 10:11 Dose: 650 mg Documented By: TYRA Albuterol/Ipratropium (Albuterol/Iprat 2.5/0.5mg 3 Ml Ampul.Neb) 3 ml INHALE RQ6H WHILE AWAKE PRN PRN Reason: shortness of breath/wheezing Atorvastatin Calcium (Atorvastatin Calcium 20 Mg Tablet) 20 mg PO BEDTIME [facility] Last Admin: 02/22/25 20:12 Dose: 20 mg Documented By: CAMMIE Calcium Carbonate (Calcium Carbonate 750 Mg Tab.Chew) 750 mg PO Q4H PRN PRN Reason: Heartburn Enoxaparin Sodium (Enoxaparin Sodium 30 Mg/0.3 Ml Syringe) 30 mg SUBCUT Q24H [facility] Last Admin: 02/23/25 08:52 Dose: Not Given Documented By: ISMAEL Non-Admin Reason: Patient Refused Guaifenesin/Dextromethorphan (Guaifenesin Dm 100/10/5 Ml 5 Ml Syrup) 5 ml PO Q6H PRN PRN Reason: Cough Last Admin: 02/20/25 20:16 Dose: 5 ml Documented By: SHAJI Doxycycline Hyclate 100 mg/ (Sodium Chloride) 250 mls @ 166.67 mls/hr IV Q12H [facility] Last Infusion: 02/23/25 01:02 Dose: Infused Documented By: CAMMIE Magnesium Hydroxide (Milk Of Magnesia 30 Ml Oral.Susp) 30 ml PO DAILY PRN PRN Reason: Constipation Melatonin (Melatonin 3 Mg Tablet) 6 mg PO BEDTIME PRN PRN Reason: Insomnia Last Admin: 02/19/25 19:26 Dose: 6 mg Documented By: JOHN Methylprednisolone Sodium Succinate (Methylprednisolone Sod Succ 40 Mg/Ml Vial) 40 mg IVPUSH Q12H [facility] Last Admin: 02/22/25 23:25 Dose: 40 mg Documented By: CAMMIE Oseltamivir Phosphate (Oseltamivir Phosphate 30 Mg Capsule) 30 mg PO DAILY [facility] Stop: 02/24/25 09:01 Last Admin: 02/23/25 08:47 Dose: 30 mg Documented By: ISMAEL Sertraline HCl (Sertraline Hcl 100 Mg Tablet) 200 mg PO BEDTIME [facility] Last Admin: 02/22/25 20:12 Dose: 200 mg Documented By: CAMMIE Sodium Chloride (0.9 % Sodium Chloride Flush 3 Ml Syringe) 3 ml IVFLUSH QSHIFT [facility] Last Admin: 02/23/25 08:51 Dose: 3 ml Documented By: ISMAEL Labs 02/21/25 06:43 02/21/25 06:43 Labs: Laboratory Results - last 24 hr 02/22/25 10:01 Stl C. cayetanensis PCR Not Detected Stool Rotavirus A PCR Not Detected Stl Adenov F 40/41 PCR Not Detected Stool Astrovirus (PCR) Not Detected Stool Campylobacter PCR Not Detected Stool Cryptosporidium PCR Not Detected Stl Sh Tox Pr E STEC PCR Not Detected Stool E coli O157 PCR Not applicable Stl Enterotoxigenic E PCR Not Detected Stool EPEC (PCR) Not Detected Stool EAEC (PCR) Not Detected Stl E. histolytica PCR Not Detected Stool Giardia Lamblia PCR Not Detected Stl P. shigelloides PCR Not Detected Stool Salmonella PCR Not Detected Stool Sapovirus (PCR) Not Detected Stl Shigella/EIEC PCR Not Detected St Y.enterocolitica PCR Not Detected Stool Vibrio (PCR) Not Detected Stl Vibrio cholerae PCR Not Detected Stl Norovirus GI/GII PCR Not Detected C. difficile Tox B Gene NEGATIVE Assessment and Plan (1) Acute encephalopathy: Status: Acute (2) Generalized muscle weakness: Status: Acute (3) Influenza A: Status: Acute Plan This is an 84-year-old female who presents to the emergency department with confusion found to have influenza a. Over the last 24 hours has deteriorated now with shortness of breath and wheezing Toxic metabolic encephalopathy due to influenza a(now with relative hypoxemia) empiric ceftriaxone/doxycycline 3, dc ceftriaxone, doxy x 5 days Tamiflun x 5 days IV Solu-Medrol 40 mg q.12 hours---no indication, stop Off O2 Diarrhea cdif, gi panel negative, nonr today HLD Lipitor Mood disorder Zoloft PT eval Lovenox DNR DNI Patient requires at least 2 midnights going forward or more of inpatient stay given deterioration of condition and resuscitation of IV antibiotics and steroids. This can not be achieved a lesser acute setting PT to reassess for home Quality Stroke Does the patient have a stroke diagnosis?: No VTE Prior VTE?: No VTE Risk Level:: Medical - moderate - high VTE Device Contraindication: N/A - Device Ordered VTE Drug Contraindication: N/A - Med Ordered
--- NOTE | 2025-02-23 11:45 | W.MHC.F2F ---
Service Date Service Date: 02/23/25 Encounter Date of encounter: 02/23/25 Reasons for Services Signs and symptoms assessed: weaknesss, sob related influenza Reason for assisted: medication management and teach disease management Reason for physical therapy: therapeutic exercises, restore joint function, ADL training and energy conservation Homebound: Leaving the home is medically contraindicated at this time without the asist of a device and/or another person due th the listed conditions above and below. Reason homebound: unsteady gait / fall risk and weakness related to hospital stay Homebound supporting statement: homebound due to weakness related to influenza, not able to drive and therefore needs the assistance of another person Certification: Based on the above findings, I certify that this patient is confined to the home and needs intermittent assisted care, physical therapy and/or speech therapy, or continues to need occupational therapy. The patient is under my care, and I have initiated the establishment of the plan of care. The patient will be followed by a physician who will periodically review the plan of care. Time Spent With Patient Time: Total time managing care of this patient today ____ minutes.
[2025-02-23 13:14] VITALS: BP 121/60; PULSE 66; RESP 18; TEMP 36.6; O2SAT 93
== END 2025-02-23 13:14 | disposition home health service (06) ==
LOC: HO.ED 07:35 → HO.EDOVER 08:23 → HO.S3 15:01
PROVIDERS: Hospitalist; Admitting Provider Physician Assistant Medical; Emergency Provider Emergency Medicine; PCP Family Medicine; Visit Provider Internal Medicine
DX: J10.1 Influenza due to other identified influenza virus with other respiratory manifestations (principal); G93.40 Encephalopathy, unspecified; M62.81 Muscle weakness (generalized); R41.82 Altered mental status, unspecified; I45.10 Unspecified right bundle-branch block; R50.9 Fever, unspecified; R51.9 Headache, unspecified; R05.9 Cough, unspecified; Z79.899 Other long term (current) drug therapy
CPT/HCPCS: 36415; 71045; 80053; 81001; 82947; 83605; 83735; 84484; 85025; 85610; 87040; 87493; 87507; 87637; 93005; 96365; 96366; 96372; 96375; 96376; 97116; 97162; 97530; 99221; 99285; J0456; J0696; J1271; J1650; J2919; J7120

== ENCOUNTER → 2025-02-19 05:09 | Outpatient (BNV) | payer MEDICARE, SELFPAY | PROVIDERS: Admitting Provider Physician Assistant Medical; Emergency Provider Emergency Medicine; Visit Provider Internal Medicine Cardiovascular Disease | DX: I45.10 Unspecified right bundle-branch block (principal) | CPT/HCPCS: 93010 ==

== ENCOUNTER → 2025-02-19 08:15 | Outpatient (BNV) | payer MEDICARE, SELFPAY | PROVIDERS: Admitting Provider Physician Assistant Medical; Emergency Provider Emergency Medicine; Visit Provider Physician Assistant Medical | DX: G93.40 Encephalopathy, unspecified (principal); M62.81 Muscle weakness (generalized); J10.1 Influenza due to other identified influenza virus with other respiratory manifestations | CPT/HCPCS: 99223; 99233 ==